=== PATIENT | female | born 1970 | race Caucasian/White ===

== ENCOUNTER 2016-10-13 19:09 | Emergency (ER) | payer BC ==
[~2016-10-13 19:09] MED LIST: LORT5TAB; PERC10TA27 PO; Z.0.NO CURRENT MEDS
[2016-10-13 19:22] VITALS: BP 152/97; PULSE 90; RESP 20; TEMP 98.3; O2SAT 99
[2016-10-13] MEDS ORDERED: ALPR0.5T3 PO (19:32)
[2016-10-13] MEDS ORDERED: SODIUM CHLORIDE 0.9% FLUSH 10 ML FLUSH IVF PRN (19:45)
[2016-10-13] MEDS ORDERED: HYDROmorphone HCL PF 1 MG/ML VIAL IVS ONE (19:45)
[2016-10-13] MEDS ORDERED: ONDANSETRON HCL 4 MG/2 ML VIAL IVP ONE (19:45)
[2016-10-13 19:55] LABS: BLOOD, URINE NEG (NEG); GLUCOSE,URINE NEG (NEG); KETONE, URINE NEG (NEG); NITRITE,URINE NEG (NEG)
--- NOTE | 2016-10-13 20:05 | PD ---
HPI . Right upper quadrant pain Chief Complaint: Flank/Kidney Pain Time Seen by Provider: 19:34 Travel History International Travel<30 days: No Contact w/Intl Traveler<30days: No Traveled to known affect area: No History of Present Illness HPI Patient presents with right upper quadrant/right flank pain which started yesterday. It is associated with nausea but no vomiting. She also has chills. She feels like her abdomen is bloated. Pain is exacerbated by deep breathing. She denies any urinary tract symptoms. She rates her pain as 8/10. PFSH Past Medical History Anxiety: Yes Depression: No Cancer: Yes (CERVICAL: 1993) Hepatitis: No Hiatal Hernia: No Psychiatric: No Reproductive: Yes (ruptured cyst when 17, cervical cancer, exploratory ablation ) Thyroid Disease: No Tetanus Vaccination: < 5 Years Influenza Vaccination: No ?: Not : 1 Para: 0 : 1 Ovarian Cysts: Yes (EXPLORATORY AB SURGERY 1988) Past Surgical History Abdominal Surgery: Yes (OVARIAN CYST SX) Body Medical Devices: breast implants Hysterectomy: Yes Pacemaker: No Other Surgery: Yes (BREAST AUGMENTATION 2004) Social History Alcohol Use: Yes (2 DRINKS PER WEEK) Tobacco Use: Yes (1 PPD ) Substance Use: No Allergies-Medications (Allergen,Severity, Reaction): Coded Allergies: No Known Allergies (Verified , 10/13/16) Reported Meds & Prescriptions Reported Meds & Active Scripts Active Reported Alprazolam 0.5 Mg Tab 0.5 Mg PO BID PRN Review of Systems Except as stated in HPI: all other systems reviewed are Neg General / Constitutional: Positive: Chills Gastrointestinal: Positive: Nausea, Abdominal Pain, No: Vomiting, Diarrhea Genitourinary: No: Urgency, Frequency, Dysuria Physical Exam Narrative GENERAL: Patient is awake and alert and in no acute distress. SKIN: Warm and dry. HEAD: Atraumatic. Normocephalic. EYES: Pupils equal and round. Extraocular movements are intact. ENT: No nasal bleeding or discharge. Mucous membranes pink and moist. NECK: Trachea midline. Neck is supple. CARDIOVASCULAR: Regular rate and rhythm. Heart sounds are normal. RESPIRATORY: No accessory muscle use. Lungs are clear with full air movement throughout. GASTROINTESTINAL: Abdomen soft. She is tender on the right but the tenderness is lateral to the midclavicular line. The maximal tenderness is actually at the anterior axillary line. There is no CVAT. MUSCULOSKELETAL: No obvious deformities. No edema. NEUROLOGICAL: Awake and alert. No obvious cranial nerve deficits. Motor grossly within normal limits. Normal speech. PSYCHIATRIC: Appropriate mood and affect; insight and judgment normal. Data Data Last Documented VS Vital Signs Date Time Temp Pulse Resp B/P Pulse Ox O2 Delivery O2 Flow Rate FiO2 10/13/16 20:30 119/80 10/13/16 19:22 98.3 90 20 99 Orders Urinalysis - C+S If Indicated (10/13/16 19:34) Ct Abd/Pel W/O Iv Contrast (10/13/16 19:34) Ondansetron Inj (Zofran Inj) (10/13/16 19:45) Sodium Chloride 0.9% Flush (Ns Flush) (10/13/16 19:45) Hydromorphone Pf Inj (Dilaudid Pf Inj) (10/13/16 19:45) Ed Urine Pregnancytest Poc (10/13/16 19:34) Complete Blood Count With Diff (10/13/16 19:46) Comprehensive Metabolic Panel (10/13/16 19:46) Lipase (10/13/16 19:46) Labs Laboratory Tests Test 10/13/16 10/13/16 19:28 19:50 Urine Color YELLOW Urine Turbidity CLEAR Urine pH 7.0 Urine Specific [place] 1.004 Urine Protein NEG mg/dL Urine Glucose (UA) NEG mg/dL Urine Ketones NEG mg/dL Urine Occult Blood NEG Urine Nitrite NEG Urine Bilirubin NEG Urine Leukocyte Esterase NEG Urine Squamous Epithelial 0-5 /hpf Cells Microscopic Urinalysis Comment CULT NOT INDICATED White Blood Count 10.4 TH/MM3 Red Blood Count 3.86 MIL/MM3 Hemoglobin 12.8 GM/DL Hematocrit 37.5 % Mean Corpuscular Volume 97.2 FL Mean Corpuscular Hemoglobin 33.3 PG Mean Corpuscular Hemoglobin 34.2 % Concent Red Cell Distribution Width 13.4 % Platelet Count 266 TH/MM3 Mean Platelet Volume 8.4 FL Neutrophils (%) (Auto) 60.8 % Lymphocytes (%) (Auto) 28.4 % Monocytes (%) (Auto) 6.0 % Eosinophils (%) (Auto) 2.6 % Basophils (%) (Auto) 2.2 % Neutrophils # (Auto) 6.3 TH/MM3 Lymphocytes # (Auto) 3.0 TH/MM3 Monocytes # (Auto) 0.6 TH/MM3 Eosinophils # (Auto) 0.3 TH/MM3 Basophils # (Auto) 0.2 TH/MM3 CBC Comment DIFF FINAL Differential Comment Sodium Level 140 MEQ/L Potassium Level 3.5 MEQ/L Chloride Level 108 MEQ/L Carbon Dioxide Level 22.7 MEQ/L Anion Gap 9 MEQ/L Blood Urea Nitrogen 10 MG/DL Creatinine 0.64 MG/DL Estimat Glomerular Filtration 100 ML/MIN Rate Random Glucose 90 MG/DL Calcium Level 8.8 MG/DL Total Bilirubin 0.3 MG/DL Aspartate Amino Transf 18 U/L (AST/SGOT) Alanine Aminotransferase 24 U/L (ALT/SGPT) Alkaline Phosphatase 64 U/L Total Protein 6.9 GM/DL Albumin 3.9 GM/DL Lipase 204 U/L [facility] Medical Decision Making Medical Screen Exam Complete: Yes Emergency Medical Condition: Yes Differential Diagnosis Differential diagnosis of abdominal pain includes but is not limited to gastritis, pancreatitis, hepatitis, gastroenteritis, gallbladder disease, constipation, urinary retention, UTI, peptic ulcer disease, diverticulitis or appendicitis Narrative Course Patient presents complaining with abdominal pain. She is tender in the right upper quadrant but not in the usual location for gallbladder pain. I have ordered IV pain medication. Patient has currently declined it stating that she is driving herself. I have ordered a CT of her abdomen, labs and a urinalysis. Further evaluation and treatment will be based on these findings. CBC & BMP Diagram 10/13/16 19:50 LFTs and lipase are normal. UA has no evidence of infection or blood. CT>>Suspected changes of focal diverticulitis at the mid ascending colon. She will be treated for diverticulitis with Bactrim and Flagyl. Diagnosis Primary Impression: Abdominal pain Qualified Code: R10.11 - Right upper quadrant abdominal pain Additional Impression: Diverticulitis large intestine w/o perforation or abscess w/o bleeding Patient Instructions: Diverticulitis (DC), General Instructions Med/Other Pt SpecificInfo: Prescription(s) given Scripts Hydrocodone-Acetaminophen ([place])5-325 mg Tab1 Tab PO Q4H PRN (PAIN) #12 TAB Ref 0 Prov:Trixie Savage MD 10/13/16 Metronidazole (Flagyl)500 Mg [id number] Mg PO BID 7 Days Ref 0 Prov:Trixie Savage MD 10/13/16 Sulfamethoxazole-Trimethoprim (Bactrim DS)800-160 Mg Tab1 Tab PO BID #20 TAB Ref 0 Prov:Trixie Savage MD 10/13/16 Disposition: 01 DISCHARGE HOME Condition: Stable Trixie Savage MD Oct 13, 2016 20:05
[2016-10-13 20:06] LABS: AUTOMATED NEUTROPHIL # 6.3 TH/MM3 (1.8-7.7); BASOPHIL # 0.2 TH/MM3 (0-0.2); BASOPHIL % 2.2 % (0.0-2.0); EOSINOPHIL # 0.3 TH/MM3 (0-0.4); EOSINOPHIL % 2.6 % (0.0-4.0); HEMATOCRIT 37.5 % (35.0-46.0); LYMPH % 28.4 % (9.0-44.0); MEAN CELL VOLUME 97.2 FL (80.0-100.0); MEAN CORPUSCULAR HEMOGLOBIN 33.3 PG (27.0-34.0); MEAN CORPUSCULAR HGB CONC 34.2 % (32.0-36.0); NEUT % 60.8 % (16.0-70.0); PLATELET COUNT 266 TH/MM3 (150-450); RED BLOOD COUNT 3.86 MIL/MM3 (4.00-5.30); RED CELL DISTRIBUTION WIDTH 13.4 % (11.6-17.2); WHITE BLOOD COUNT 10.4 TH/MM3 (4.0-11.0)
[2016-10-13 20:11] LABS: COMMENT (UR) CULT NOT INDICATED; CULTURE IF INDICATED CULT NOT INDICATED; SQUAMOUS EPITHELIAL CELL URINE 0-5 /hpf (0-5); URINE COLOR YELLOW (YELLW/STRAW)
[2016-10-13 20:13] LABS: HEMO FLAGS DIFF FINAL
[2016-10-13 20:15] LABS: CHLORIDE 108 MEQ/L (98-107); POTASSIUM 3.5 MEQ/L (3.5-5.1); SODIUM (NA) 140 MEQ/L (136-145)
[2016-10-13 20:19] LABS: ANION GAP 9 MEQ/L (5-15); BICARBONATE 22.7 MEQ/L (21.0-32.0); BLOOD UREA NITROGEN 10 MG/DL (7-18)
[2016-10-13 20:22] LABS: ALT (GPT) 24 U/L (10-53); AST (GOT) 18 U/L (15-37); GLOMERULAR FILTRATION RATE 100 ML/MIN (>89)
[2016-10-13 20:24] LABS: TOTAL BILIRUBIN ADULT 0.3 MG/DL (0.2-1.0)
[2016-10-13 20:25] LABS: ALKALINE PHOSPHATASE 64 U/L (45-117)
[2016-10-13 20:30] VITALS: BP 119/80
--- NOTE | 2016-10-13 20:57 | RADRPT ---
EXAM DATE/TIME: 10/13/2016 20:12 [facility] COMPARISON: CT ABDOMEN & PELVIS W/O CONTRAST, November 18, 2014, 9:32. INDICATIONS : Right flank and lower back pain. ORAL CONTRAST: No oral contrast ingested. RADIATION DOSE: 11.80 CTDIvol (mGy) MEDICAL HISTORY : Cervical cancer SURGICAL HISTORY : Hysterectomy. ENCOUNTER: Initial ACUITY: 1 day PAIN SCALE: 8/10 LOCATION: Right flank TECHNIQUE: Volumetric scanning of the abdomen and pelvis was performed. Using automated exposure control and ad justment of the mA and/or kV according to patient size, radiation dose was kept as low as reasonably achievable to obtain optimal diagnostic quality images. DICOM format image data is available electro nically for review and comparison. FINDINGS: LOWER LUNGS: The visualized lower lungs are clear. LIVER: Homogeneous density without lesion. There is no dilation of the biliary tree. No calcified gallston es. SPLEEN: Normal size without lesion. PANCREAS: Within normal limits. KIDNEYS: Normal in size and shape. There is no mass, stone, or hydronephrosis. ADRENAL GLANDS: Within normal limits. VASCULAR: There is no aortic aneurysm. BOWEL/MESENTERY: There is a 1.5 cm cystic area seen at the right lateral aspect of the ascending colon likely related to diverticula. There some minimal suspected surrounding inflammatory change. Remaining aspect the co karmen is unremarkable. Dilated bowel is not seen. The appendix is normal. ABDOMINAL WALL: Within normal limits. RETROPERITONEUM: There is no lymphadenopathy. BLADDER: No wall thickening or mass. REPRODUCTIVE: Within normal limits. INGUINAL: There is no lymphadenopathy or hernia. MUSCULOSKELETAL: Within normal limits for patient age. CONCLUSION: Suspected changes of focal diverticulitis at the mid ascending colon. Yohannes Murdock MD on October 13, 2016 at 20:49 Board Certified Radiologist. This report was verified electronically.
[2016-10-13] MEDS ORDERED: BACT800T5 PO (21:10)
[2016-10-13] MEDS ORDERED: NORC5TAB PO (21:10)
[2016-10-13] MEDS ORDERED: METR-1 PO (21:10)
== END 2016-10-13 21:33 | disposition home or self-care (01) ==
LOC: PHED 19:09
DX: K57.32 Diverticulitis of large intestine without perforation or abscess without bleeding (principal); F17.210 Nicotine dependence, cigarettes, uncomplicated
CPT/HCPCS: 74176; 80053; 81001; 83690; 85025